=== PATIENT | male | born 1960 | race Two or more races ===

== ENCOUNTER 2020-01-11 11:38 | Inpatient (IN) | payer OTHER ==
[~2020-01-11] VITALS: Ht 165.1 cm; Wt 92.9 kg
[2020-01-11] MEDS ORDERED: HUMALOG100 UNIT/4 SUBQ (12:26)
[2020-01-11] MEDS ORDERED: METFORMIN HCL500 M1 ORAL (12:26)
[2020-01-11] MEDS ORDERED: LEVOFLOXACIN750 MG ORAL (12:26)
[2020-01-11] MEDS ORDERED: HYDROCHLOROTH12.5 MG ORAL (12:26)
[2020-01-11] MEDS ORDERED: OXYTROL1 EACH TD (12:26)
[2020-01-11] MEDS ORDERED: GABAPENTIN600 MG ORAL (12:26)
[2020-01-11] MEDS ORDERED: FLOMAX0.4 MG ORAL (12:26)
[2020-01-11 12:28] VITALS: BP 134/87
--- NOTE | 2020-01-11 12:35 | NUR ---
brought in from [facility] for evaluation of painful scrotal area x 3 days with swelling scrotum is swallen and red exami virgil by dr miller labs done
--- NOTE | 2020-01-11 12:37 | NUR ---
ultrasound at bedside for scrotal ultrasound
[2020-01-11 12:46] LABS: APPEARANCE,URINE SLIGHTLY CLOUDY; BILIRUBIN, URINE NEGATIVE (NEGATIVE); GLUCOSE, URINE (UA) 3+ (NEGATIVE); KETONES,URINE NEGATIVE (NEGATIVE); LEUKOCYTE ESTERASE ,URINE 3+ (NEGATIVE); NITRITE,URINE POSITIVE (NEGATIVE); PH,URINE 6 (4.5-8.0); PROTEIN,URINE 1+ (NEGATIVE); UROBILINOGEN,URINE 1 MG/DL (0.0-1.0)
[2020-01-11 12:48] LABS: INR 1.1 (0.9-1.1)
[2020-01-11 12:52] LABS: HEMATOCRIT 46.5 % (42.0-52.0); MEAN CORPUSCULAR VOLUME 97 FL (80-99); PLATELET COUNT 85 K/UL (150-450); RED BLOOD COUNT 4.81 M/UL (4.70-6.10); RED CELL DISTRIBUTION WIDTH 12.8 % (11.6-14.8)
[2020-01-11] MEDS ORDERED: Piperacillin/Tazobactam 3.375 GM in NS 110 ML IVPB ONE (13:00)
[2020-01-11 13:07] LABS: COLOR,URINE YELLOW
[2020-01-11 13:11] LABS: ALANINE AMINOTRANSFERASE 35 U/L (12-78); ALBUMIN 2.8 G/DL (3.4-5.0); ALBUMIN/GLOBULIN RATIO 0.5 (1.0-2.7); ALKALINE PHOSPHATASE 171 U/L (46-116); ANION GAP 3 mmol/L (5-15); ASPARTATE AMINO TRANSFERASE 34 U/L (15-37); BILIRUBIN,TOTAL 2.4 MG/DL (0.2-1.0); BLOOD UREA NITROGEN 7 mg/dL (7-18); CALCIUM 8.6 MG/DL (8.5-10.1); CARBON DIOXIDE 31 MMOL/L (21-32); CHLORIDE 98 MMOL/L (98-107); CREATININE 0.9 MG/DL (0.55-1.30); POTASSIUM 3.6 MMOL/L (3.5-5.1); SODIUM 132 MMOL/L (136-145)
[2020-01-11 13:13] LABS: BILIRUBIN,DIRECT 0.7 MG/DL (0.0-0.3)
--- NOTE | 2020-01-11 13:45 | NUR ---
ED Nurse Note: patient aware of admition, AAO x4,VSS at this time.
--- NOTE | 2020-01-11 14:34 | Emergency Room Report ---
History of Present Illness General Chief Complaint: General Complaint Source: Patient Present Illness HPI 59-year-old male presents with scrotal pain and swelling x2 days. Coming from assisted facility. Pain is dull, 7 out of 10, nonradiating. Denies fevers or chills. Denies nausea or vomiting. No other aggravating or relieving factors. 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 COVID-19 Screening: Negative COVID-19 COVID-19 Testing Source: nasopharn Patient History Past Medical History: DM, HTN, COPD, other - cirrohisis Pertinent Family History: none Social History: Denies: smoking, alcohol use, drug use Immunizations: UTD Reviewed Nursing Documentation: PMH: Agreed; PSxH: Agreed Nursing Documentation-PMH Past Medical History: No History, Except For Hx Hypertension: Yes - cirrhosis Hx COPD: Yes Hx Diabetes: Yes - type 2 Review of Systems All Other Systems: negative except mentioned in HPI Physical Exam Vital Signs Date Time Temp Pulse Resp B/P (MAP) Pulse Ox O2 Delivery O2 Flow Rate FiO2 01/11/20 11:39 97.9 87 16 134/87 (103) 95 Room Air Sp02 EP Interpretation: reviewed, normal General Appearance: no apparent distress, alert, GCS 15, non-toxic Head: normocephalic, atraumatic Eyes: bilateral eye normal inspection, bilateral eye PERRL ENT: hearing grossly normal, normal pharynx, no angioedema, normal voice Neck: full range of motion, supple/symm/no masses Respiratory: chest non-tender, lungs clear, normal breath sounds, speaking full sentences Cardiovascular #1: regular rate, rhythm, no edema Cardiovascular #2: 2+ carotid (R), 2+ carotid (L), 2+ radial (R), 2+ radial (L), 2+ dorsalis pedis (R), 2+ dorsalis pedis (L) Gastrointestinal: normal bowel sounds, non tender, soft, non-distended, no guarding, no rebound Rectal: deferred Genitourinary: normal inspection, other - Left-sided scrotal swelling Musculoskeletal: back normal, normal range of motion, gait/station normal, non- tender Neurologic: alert, motor strength/tone normal, oriented x3, sensory intact, responsive, speech normal Psychiatric: judgement/insight normal, memory normal, mood/affect normal, no suicidal/homicidal ideation Reflexes: 3+ bicep (R), 3+ bicep (L), 3+ tricep (R), 3+ tricep (L), 3+ knee (R), 3+ knee (L) Skin: other - See nursing notes Lymphatic: no adenopathy Medical Decision Making Diagnostic Impression: Primary Impression: Hydrocele Qualified Codes: N43.3 - Hydrocele, unspecified Additional Impression: UTI (urinary tract infection) Qualified Codes: N39.0 - Urinary tract infection, site not specified ER Course Hospital Course 59-year-old male presents with scrotal pain and swelling Differential diagnoses include: Torsion, cellulitis, abscess Clinical course Patient placed on stretcher. On monitoring engineer with stable vitals are ED course. After initial history and physical, I ordered labs, IV fluids, EKG, chest x-ray, blood cultures, UA. Labs -cytosis, hemoglobin/hematocrit stable, electrolytes okay, lactic 2, UTI grossly positive. CXR - no acute process Scrotal ultrasound shows large hydrocele no evidence of abscess Given fluid bolus. Abx given. Case discussed with Dr Rodriguez and they agreed to admit patient to their service for further care and support I feel this is a highly complex case requiring extensive working including EKG/Rhythm strip, Xray/CT/US, Blood/urine lab work, repeat exams while in ED, and administration of strong opiates/narcotics for pain control, admission to hospital or close patient follow up. Diagnosis - UTI, hydrocele Patient admitted to floor in serious condition Laboratory Tests Test 01/11/20 12:15 White Blood Count 7.0 K/UL (4.8-10.8) Red Blood Count 4.81 M/UL (4.70-6.10) Hemoglobin 16.0 G/DL (14.2-18.0) Hematocrit 46.5 % (42.0-52.0) Mean Corpuscular Volume 97 FL (80-99) Mean Corpuscular Hemoglobin 33.3 PG (27.0-31.0) H Mean Corpuscular Hemoglobin Concent 34.4 G/DL (32.0-36.0) Red Cell Distribution Width 12.8 % (11.6-14.8) Platelet Count 85 K/UL (150-450) L Mean Platelet Volume 8.1 FL (6.5-10.1) Neutrophils (%) (Auto) % (45.0-75.0) Lymphocytes (%) (Auto) % (20.0-45.0) Monocytes (%) (Auto) % (1.0-10.0) Eosinophils (%) (Auto) % (0.0-3.0) Basophils (%) (Auto) % (0.0-2.0) Differential Total Cells Counted 100 Neutrophils % (Manual) 81 % (45-75) H Lymphocytes % (Manual) 6 % (20-45) L Monocytes % (Manual) 10 % (1-10) Eosinophils % (Manual) 3 % (0-3) Basophils % (Manual) 0 % (0-2) Band Neutrophils 0 % (0-8) Platelet Estimate Decreased L Platelet Morphology Normal Red Blood Cell Morphology Normal Prothrombin Time 12.3 SEC (9.30-11.50) H Prothromb Time International Ratio 1.1 (0.9-1.1) Activated Partial Thromboplast Time 30 SEC (23-33) Urine Color Yellow Urine Appearance Slightly cloudy Urine pH 6 (4.5-8.0) Urine Specific [place] 1.010 (1.005-1.035) Urine Protein 1+ (NEGATIVE) H Urine Glucose (UA) 3+ (NEGATIVE) H Urine Ketones Negative (NEGATIVE) Urine Blood 4+ (NEGATIVE) H Urine Nitrite Positive (NEGATIVE) H Urine Bilirubin Negative (NEGATIVE) Urine Urobilinogen 1 MG/DL (0.0-1.0) H Urine Leukocyte Esterase 3+ (NEGATIVE) H Urine RBC 2-4 /HPF (0 - 0) H Urine WBC Tntc /HPF (0 - 0) H Urine Squamous Epithelial Cells Occasional /LPF Urine Bacteria Many /HPF (NONE) H Sodium Level 132 MMOL/L (136-145) L Potassium Level 3.6 MMOL/L (3.5-5.1) Chloride Level 98 MMOL/L (98-107) Carbon Dioxide Level 31 MMOL/L (21-32) Anion Gap 3 mmol/L (5-15) L Blood Urea Nitrogen 7 mg/dL (7-18) Creatinine 0.9 MG/DL (0.55-1.30) Estimat Glomerular Filtration Rate > 60 mL/min (>60) Glucose Level 230 MG/DL (74-106) H Lactic Acid Level 2.00 mmol/L (0.4-2.0) Calcium Level 8.6 MG/DL (8.5-10.1) Total Bilirubin 2.4 MG/DL (0.2-1.0) H Direct Bilirubin 0.7 MG/DL (0.0-0.3) H Aspartate Amino Transf (AST/SGOT) 34 U/L (15-37) Alanine Aminotransferase (ALT/SGPT) 35 U/L (12-78) Alkaline Phosphatase 171 U/L (46-116) H Total Protein 8.0 G/DL (6.4-8.2) Albumin 2.8 G/DL (3.4-5.0) L Globulin 5.2 g/dL Albumin/Globulin Ratio 0.5 (1.0-2.7) L Chest X-Ray Diagnostic Results Chest X-Ray Diagnostic Results : Chest X-Ray Ordered: Yes # of Views/Limited/Complete: 1 View Indication: Other EP Interpretation: Yes Interpretation: no consolidation, no effusion, no pneumothorax, no acute cardiopulmonary disease Impression: No acute disease Electronically Signed by: Electronically signed by Frederick Johnson MD Last Vital Signs Date Time Temp Pulse Resp B/P (MAP) Pulse Ox O2 Delivery O2 Flow Rate FiO2 01/11/20 12:28 78 18 01/11/20 12:28 97.9 134/87 95 Room Air Status: improved Disposition: ADMITTED INPATIENT Condition: Serious Referrals: Rosas Rodriguez MD (PCP) Frederick Johnson MD Jan 11, 2020 14:34
--- NOTE | 2020-01-11 14:42 | Diagnostic Imaging Report ---
Indications: Bilateral testicular pain Technique: Grayscale and duplex images of the scrotum Comparison: none Findings:The right testicle measures 3.7cm in length. It demonstrates normal echogenicity. Normal Doppler flow. Normal epididymis. There is a small hydrocele The left testicle measures 4.2 cm in length. It demonstrates normal echogenicity and normal Doppler flow. Normal epididymis. There are small hydrocele. There are small parenchymal calcifications Impression: No acute abnormality. No evidence of acute torsion Bilateral parenchymal calcifications and bilateral hydroceles incidentally noted
[2020-01-11 16:10] VITALS: BP 140/88
--- NOTE | 2020-01-11 16:35 | Diagnostic Imaging Report ---
Indication: Cough Technique: One view of the chest Comparison: none Findings: Lungs and pleural spaces are clear. The heart size is normal. Impression: Negative
[2020-01-11] MEDS ORDERED: Morphine Sulfate 2mg/ml Inj(IV/IM USE ONLY) IVP PRN ×2 (17:00)
[2020-01-11] MEDS ORDERED: Miralax 17gm pkt ORAL PRN (17:00)
--- NOTE | 2020-01-11 17:24 | History and Physical ---
History of Present Illness General Date patient seen: Jan 11, 2020 Time patient seen: 17:00 Reason for Hospitalization: Scrotal pain and swelling Present Illness HPI 59-year-old male known to me from [facility] who was sent to the ER at [facility] with scrotal pain and swelling x2 days. The pain is dull, 7 out of 10, nonradiating. Denies fevers or chills. Denies nausea or vomiting. No other aggravating or relieving factors. Denies any other associated symptoms. In the ER he was found to have a UTI and severe scrotal swelling which by ultrasound was consistent with a hydrocele. No evidence of torsion or abscess. Admission is requested. Antibiotics were requested and started in the ER. Allergies: Coded Allergies: No Known Allergies (Unverified , 01/11/20) COVID-19 Screening Contact w/high risk pt: No Experienced COVID-19 symptoms?: No Medication History Scheduled Gabapentin* (Gabapentin*), 300 MG ORAL THREE TIMES A DAY, (Reported) Hydrochlorothiazide* (Hydrochlorothiazide*), 12.5 MG ORAL DAILY, (Reported) Levofloxacin* (Levofloxacin*), 750 MG ORAL DAILY, (Reported) Metformin Hcl* (Metformin Hcl*), 500 MG ORAL TWICE A DAY, (Reported) Tamsulosin HCl (Flomax), MG ORAL DAILY, (Reported) Miscellaneous Medications Insulin Lispro (Humalog), 0 SUBQ, (Reported) Oxybutynin (Oxytrol), 1 EACH TD, (Reported) Patient History Healthcare decision maker Resuscitation status Advanced Directive on File Review of Systems All Other Systems: negative except mentioned in HPI ROS Narrative denies fever or chills. Physical Exam General Appearance: WD/WN Lines, tubes and drains: peripheral HEENT: normocephalic Neck: non-tender Respiratory/Chest: lungs clear Cardiovascular/Chest: normal rate Abdomen: non tender Genitourinary/Rectal: other - moderate testicular swelling noted. Left testicle > R. Last 24 Hour Vital Signs Date Time Temp Pulse Resp B/P (MAP) Pulse Ox O2 Delivery O2 Flow Rate FiO2 01/11/20 12:28 78 18 01/11/20 12:28 97.9 16 134/87 95 Room Air 01/11/20 11:39 97.9 87 16 134/87 (103) 95 Room Air Laboratory Tests Test 01/11/20 12:15 White Blood Count 7.0 K/UL (4.8-10.8) Red Blood Count 4.81 M/UL (4.70-6.10) Hemoglobin 16.0 G/DL (14.2-18.0) Hematocrit 46.5 % (42.0-52.0) Mean Corpuscular Volume 97 FL (80-99) Mean Corpuscular Hemoglobin 33.3 PG (27.0-31.0) H Mean Corpuscular Hemoglobin Concent 34.4 G/DL (32.0-36.0) Red Cell Distribution Width 12.8 % (11.6-14.8) Platelet Count 85 K/UL (150-450) L Mean Platelet Volume 8.1 FL (6.5-10.1) Neutrophils (%) (Auto) % (45.0-75.0) Lymphocytes (%) (Auto) % (20.0-45.0) Monocytes (%) (Auto) % (1.0-10.0) Eosinophils (%) (Auto) % (0.0-3.0) Basophils (%) (Auto) % (0.0-2.0) Differential Total Cells Counted 100 Neutrophils % (Manual) 81 % (45-75) H Lymphocytes % (Manual) 6 % (20-45) L Monocytes % (Manual) 10 % (1-10) Eosinophils % (Manual) 3 % (0-3) Basophils % (Manual) 0 % (0-2) Band Neutrophils 0 % (0-8) Platelet Estimate Decreased L Platelet Morphology Normal Red Blood Cell Morphology Normal Prothrombin Time 12.3 SEC (9.30-11.50) H Prothromb Time International Ratio 1.1 (0.9-1.1) Activated Partial Thromboplast Time 30 SEC (23-33) Urine Color Yellow Urine Appearance Slightly cloudy Urine pH 6 (4.5-8.0) Urine Specific [place] 1.010 (1.005-1.035) Urine Protein 1+ (NEGATIVE) H Urine Glucose (UA) 3+ (NEGATIVE) H Urine Ketones Negative (NEGATIVE) Urine Blood 4+ (NEGATIVE) H Urine Nitrite Positive (NEGATIVE) H Urine Bilirubin Negative (NEGATIVE) Urine Urobilinogen 1 MG/DL (0.0-1.0) H Urine Leukocyte Esterase 3+ (NEGATIVE) H Urine RBC 2-4 /HPF (0 - 0) H Urine WBC Tntc /HPF (0 - 0) H Urine Squamous Epithelial Cells Occasional /LPF Urine Bacteria Many /HPF (NONE) H Sodium Level 132 MMOL/L (136-145) L Potassium Level 3.6 MMOL/L (3.5-5.1) Chloride Level 98 MMOL/L (98-107) Carbon Dioxide Level 31 MMOL/L (21-32) Anion Gap 3 mmol/L (5-15) L Blood Urea Nitrogen 7 mg/dL (7-18) Creatinine 0.9 MG/DL (0.55-1.30) Estimat Glomerular Filtration Rate > 60 mL/min (>60) Glucose Level 230 MG/DL (74-106) H Lactic Acid Level 2.00 mmol/L (0.4-2.0) Calcium Level 8.6 MG/DL (8.5-10.1) Total Bilirubin 2.4 MG/DL (0.2-1.0) H Direct Bilirubin 0.7 MG/DL (0.0-0.3) H Aspartate Amino Transf (AST/SGOT) 34 U/L (15-37) Alanine Aminotransferase (ALT/SGPT) 35 U/L (12-78) Alkaline Phosphatase 171 U/L (46-116) H Total Protein 8.0 G/DL (6.4-8.2) Albumin 2.8 G/DL (3.4-5.0) L Globulin 5.2 g/dL Albumin/Globulin Ratio 0.5 (1.0-2.7) L Microbiology Date/Time Source Procedure Growth Status 01/11/20 16:42 Rectum Received Height (Feet): 5 Height (Inches): 5.00 Weight (Pounds): 210 Medications Current Medications Medications (Trade) Dose Ordered Sig/Chau Route PRN Reason Start Time Stop Time Status Last Admin Dose Admin Acetaminophen (Tylenol) 650 mg Q4H PRN ORAL Mild Pain (Pain Scale 1-3) 01/11/20 17:00 02/10/20 16:59 Al Hydroxide/Mg Hydroxide (Mylanta II) 30 ml Q6H PRN ORAL dyspepsia 01/11/20 17:00 02/10/20 16:59 Dextrose (Dextrose 50%) 25 ml Q30M PRN IV Hypoglycemia 01/11/20 17:00 04/10/20 16:59 Dextrose (Dextrose 50%) 50 ml Q30M PRN IV Hypoglycemia 01/11/20 17:00 04/10/20 16:59 Docusate Sodium (Colace) 100 mg EVERY 12 HOURS ORAL 01/11/20 21:00 02/10/20 20:59 Enoxaparin Sodium (Lovenox) 40 mg Q24H SUBQ 01/11/20 18:00 04/10/20 17:59 UNV Famotidine (Pepcid) 40 mg DAILY ORAL 01/12/20 09:00 04/11/20 08:59 UNV Gabapentin (Neurontin) 300 mg THREE TIMES A DAY ORAL 01/11/20 18:00 02/10/20 17:59 UNV Hydrochlorothiazide (Hydrodiuril) 12.5 mg DAILY ORAL 01/12/20 09:00 02/11/20 08:59 UNV Morphine Sulfate (Morphine Sulfate) 1 mg Q3H PRN IVP mild pain 01/11/20 17:00 01/18/20 16:59 Morphine Sulfate (Morphine Sulfate) 2 mg Q3H PRN IVP severe pain 01/11/20 17:00 01/18/20 16:59 Morphine Sulfate (Morphine Sulfate) 2 mg Q4H PRN IVP MODERATE PAIN 01/11/20 17:00 01/18/20 16:59 Ondansetron HCl (Zofran) 4 mg Q6H PRN IVP Nausea & Vomiting 01/11/20 17:00 02/10/20 16:59 Polyethylene Glycol (Miralax) 17 gm HSPRN PRN ORAL Constipation 01/11/20 17:00 02/10/20 16:59 Sodium Chloride 1,000 ml @ 75 mls/hr [id number] IV 01/11/20 18:00 01/12/20 09:00 UNV Tamsulosin HCl (Flomax) 0.4 mg DAILY ORAL 01/12/20 09:00 02/11/20 08:59 Temazepam (Restoril) 15 mg HSPRN PRN ORAL Insomnia 01/11/20 17:00 01/18/20 16:59 Assessment/Plan Status: stable Status Narrative 59 y/o male admitted to the Hospital with: # UTI # Scrotal swelling - hydrocele # Testicular pain IV antibiotic Zosyn started and will be continued Urology consult with Dr. Melanie traylor. Patient has a history of BPH Testicular elevation with rolled up towel for comfort and decrease of pain # T2DM Hold home Metformin while in the hospital - active infection Insulin sliding scale for now Monitor BG # BPH Resume Tamsulosin #Polyneuropathy Resume Gabapentin # History of recovered Covid 19 in the past Non sympthomatic at this time. PT evaluation for mobility protocol when able to participate DVT ppx with LMWH GI ppx with Famotidine FULLCODE Rosas Rodriguez MD Jan 11, 2020 17:24
--- NOTE | 2020-01-11 19:40 | NUR ---
NURSE NOTES: received report from ER nurse SHAZIA Walters. awaiting pt arrival on unit.
--- NOTE | 2020-01-11 19:44 | NUR ---
ED Nurse Note: report given to SHAZIA Cross
--- NOTE | 2020-01-11 19:45 | NUR ---
ED Nurse Note: Patient was admited to [facility] due to scrotum celullitis. Patient AAO x4, VSS at this time, ski is warm to touch. Patient was transfered to the unit via gurney, with all belongings.
--- NOTE | 2020-01-11 19:50 | NUR ---
NURSE NOTES: pt arrived on unit with no cute s/s of distress and with co pain. will give medication for pain. pt alert and oriented x 4. pt iv site clean dry and intact. pt vital signs stable. pt oriented to room and unit. bed in lowest position, call light in reach. Belongings reconciled.
[2020-01-11 19:53] VITALS: BP 156/96
--- NOTE | 2020-01-11 20:10 | NUR ---
NURSE NOTES: pt observed to have pinkish rash that he claims is itchy on his face and neck. He said it started around two to three weeks ago. [facility] the rash was not bothering him that much until I brought it up to him on my assessment. He said he will bring it up to his doctor when they do rounds. will endorse to day shift nurse to follow up with the doctor.
[2020-01-11] MEDS: Docusate 100mg cap ORAL SCH (20:13)
[2020-01-11] MEDS: NovoLOG Insulin Flexpen SUBQ SCH (20:23)
--- NOTE | 2020-01-11 21:15 | Consultation ---
DATE OF CONSULTATION: 01/11/2020 CONSULTING PHYSICIAN: Marcellus Navarro M.D. REFERRING PHYSICIAN: Rosas Rodriguez M.D. REASON FOR CONSULTATION: For evaluation of enlarged testicle. HISTORY OF PRESENT ILLNESS: This is a 59-year-old male. He has a 3 to 4 day history of enlarging left testicle with pain. He has some urinary frequency. He was noted to have some cloudiness to his urine. He was noted to have UTI. Urology evaluation is requested. PAST MEDICAL HISTORY: Significant for history of diabetes, BPH. PAST SURGICAL HISTORY: Unknown. MEDICATIONS: Current medication list and his outpatient medication list were reviewed. ALLERGIES: No known drug allergies. SOCIAL HISTORY: He is a resident of a group home. PHYSICAL EXAMINATION: GENERAL: No acute distress. VITAL SIGNS: Temperature is 97.9, blood pressure 140/88, pulse 89, respirations 16. ABDOMEN: Soft. No CVA tenderness. GENITOURINARY: Uncircumcised phallus. Left testicle is enlarged, tender to palpation. There is no fluctuance. LABORATORY DATA: BUN is 7, creatinine 0.9. White count 7.0, hemoglobin 16.0, platelets 85. His UA showed 1+ protein, 2-4 rbc's, [id number] wbc's, many bacteria. DIAGNOSTIC AND IMAGING STUDIES: The patient had testicular ultrasound, which showed evidence of bilateral hydroceles. IMPRESSION: 1. Probable left orchitis. 2. Reactive hydrocele. 3. Urinary frequency. 4. Pyuria. 5. Hematuria. 6. Proteinuria. 7. BPH. 8. Rule out neurogenic bladder. PLAN AND DISCUSSION: Again, the patient does have findings that are consistent with the left orchitis and pyuria and likely UTI. He needs to be on antibiotics as ordered. We will follow up on any other cultures. He has Flomax and Proscar ordered. He will be monitored clinically. There is no evidence of any fluctuance or abscess at this time. Marcellus Navarro M.D. DR: WALTER JOB#: [id number] CC:
[2020-01-11] MEDS: Piperacillin/Tazobactam 3.375 GM in NS 110 ML IVPB SCH (21:27)
[2020-01-11] MEDS: Sennosides 8.6mg tab ORAL SCH (21:28)
[2020-01-11] MEDS: Miralax 17gm pkt ORAL SCH (21:28)
[2020-01-11] MEDS: HYDROcodone/Acetamin 5/325 tab ORAL PRN (21:56)
[2020-01-12] VITALS: BP 127/85
--- NOTE | 2020-01-12 00:16 | NUR ---
NURSE NOTES: pt vital signs stable and wo acute s/s of distress. he still has pain but at a comfortable level. pt states increased comfort with the scrotum elevated on rolled towel.
[2020-01-12 04:00] VITALS: BP 139/83
--- NOTE | 2020-01-12 04:35 | NUR ---
NURSE NOTES: pt has been stable throughout the shift so far. vital signs within normal limits and no s/s of acute distress and wo complaint of pain at the moment. pt scrotum remains elevated on a rolled towel. pt currently sleeping
[2020-01-12] MEDS: Piperacillin/Tazobactam 3.375 GM in NS 110 ML IVPB SCH ×3 (05:02→21:33)
[2020-01-12 05:41] LABS: HEMOGLOBIN 15.3 G/DL (14.2-18.0); MEAN CORPUSCULAR VOLUME 96 FL (80-99); PLATELET COUNT 90 K/UL (150-450); RED BLOOD COUNT 4.58 M/UL (4.70-6.10); WHITE BLOOD COUNT 8.7 K/UL (4.8-10.8)
[2020-01-12] MEDS: NovoLOG Insulin Flexpen SUBQ SCH ×4 (05:49→20:15)
[2020-01-12 06:40] LABS: ANION GAP 4 mmol/L (5-15); BLOOD UREA NITROGEN 6 mg/dL (7-18); CALCIUM 8.1 MG/DL (8.5-10.1); CARBON DIOXIDE 30 MMOL/L (21-32); CHLORIDE 102 MMOL/L (98-107); CREATININE 0.9 MG/DL (0.55-1.30); POTASSIUM 3.8 MMOL/L (3.5-5.1); SODIUM 136 MMOL/L (136-145)
--- NOTE | 2020-01-12 07:27 | NUR ---
NURSE HAND-OFF: Important Events on Shift:pain management Patient Status: stable Diet: consistent carb diet Pending Orders: NA Pending Results/Labs:NA Pending MD notification:NA Latest Vital Signs: Temperature 98.5 , Pulse 78 , B/P 139 /83 , Respiratory Rate 16 , O2 SAT 97 , Room Air, O2 Flow Rate . Vital Sign Comment: stable through the shift Latest Romero Fall Score: 50 Fall Risk: High Risk Safety Measures: Call light Within Reach, Bed Alarm , Side Rails Side Rails x2, Bed position Low and Locked. Fall Precautions: Patient Fall Education Report given to Krystal Garcia RN.
--- NOTE | 2020-01-12 07:51 | NUR ---
NURSE NOTES: Received report from SHAZIA Cross. Rounding done with outgoing nurse. Pt a/o x 4, in bed, having breakfast. No SOB noted. Pt mentioned pain level is 6/10. Will give pain meds as MD ordered. Discussed POC today. Instruction was given that call nurse when pt wants to use walker. Bed in lowest position, call light within reach. Will continue to monitor.
[2020-01-12 08:00] VITALS: BP 121/80
--- NOTE | 2020-01-12 08:51 | Urology Progress Note ---
Assessment/Plan Status: stable Assessment/Plan: 1. Probable left orchitis. 2. Reactive hydrocele. 3. Urinary frequency. 4. Pyuria/UTI. 5. Hematuria. 6. Proteinuria. 7. BPH. 8. Rule out neurogenic bladder. monitor clinically abx as ordered scrotal support flomax f/u on urine cx Subjective Allergies: Coded Allergies: No Known Allergies (Unverified , 01/11/20) Subjective all noted, feels fair, voiding Objective Last 24 Hour Vital Signs Date Time Temp Pulse Resp B/P (MAP) Pulse Ox O2 Delivery O2 Flow Rate FiO2 01/12/20 04:00 98.5 78 16 139/83 (101) 97 01/12/20 00:00 98.6 98 17 127/85 (99) 95 01/11/20 21:00 Room Air 01/11/20 20:33 Room Air 01/11/20 19:53 99.2 90 18 156/96 (116) 97 01/11/20 19:43 97.9 89 16 140/88 95 Room Air 01/11/20 16:10 97.9 89 16 140/88 95 Room Air 01/11/20 12:28 78 18 01/11/20 12:28 97.9 16 134/87 95 Room Air 01/11/20 11:39 97.9 87 16 134/87 (103) 95 Room Air Intake and Output 01/11/20 01/12/20 19:00 07:00 Intake Total 1725 ml Output Total 1500 ml Balance 225 ml Intake Oral 1200 ml IV Total 525 ml Output Urine Total 1500 ml # Voids 7 Microbiology Date/Time Source Procedure Growth Status 01/11/20 16:54 Nasopharynx SARS-CoV-2 RdRp Gene Assay - Final Complete 01/11/20 16:42 Rectum Received 01/11/20 12:15 Urine,Clean Catch Urine Culture - Preliminary Gram Negative Darryl Resulted Current Medications Medications (Trade) Dose Ordered Sig/Chau Route PRN Reason Start Time Stop Time Status Last Admin Dose Admin Acetaminophen (Tylenol) 650 mg Q4H PRN ORAL Mild Pain (Pain Scale 1-3) 01/11/20 17:00 02/10/20 16:59 Acetaminophen/ Hydrocodone Bitart ([place] 5/325) 1 tab Q6H PRN ORAL Moderate Pain (Pain Scale 4-6) 01/11/20 18:00 01/18/20 17:59 01/11/20 21:56 Al Hydroxide/Mg Hydroxide (Mylanta II) 30 ml Q6H PRN ORAL dyspepsia 01/11/20 17:00 02/10/20 16:59 Dextrose (Dextrose 50%) 25 ml Q30M PRN IV Hypoglycemia 01/11/20 17:15 04/10/20 17:14 Dextrose (Dextrose 50%) 50 ml Q30M PRN IV Hypoglycemia 01/11/20 17:15 04/10/20 17:14 Docusate Sodium (Colace) 100 mg EVERY 12 HOURS ORAL 01/11/20 21:00 02/10/20 20:59 01/11/20 20:13 Enoxaparin Sodium (Lovenox) 40 mg Q24H SUBQ 01/11/20 18:00 04/10/20 17:59 UNV Famotidine (Pepcid) 40 mg DAILY ORAL 01/12/20 09:00 04/11/20 08:59 Finasteride (Proscar) 5 mg DAILY ORAL 01/12/20 09:00 04/11/20 08:59 Gabapentin (Neurontin) 300 mg THREE TIMES A DAY ORAL 01/11/20 21:00 02/10/20 20:59 01/11/20 21:28 Hydrochlorothiazide (Hydrodiuril) 12.5 mg DAILY ORAL 01/12/20 09:00 02/11/20 08:59 Insulin Aspart (NovoLOG) BEFORE MEALS AND HS SUBQ 01/11/20 21:00 04/10/20 20:59 Morphine Sulfate (Morphine Sulfate) 1 mg Q3H PRN IVP mild pain 01/11/20 17:00 01/18/20 16:59 Morphine Sulfate (Morphine Sulfate) 2 mg Q3H PRN IVP severe pain 01/11/20 17:00 01/18/20 16:59 Morphine Sulfate (Morphine Sulfate) 2 mg Q4H PRN IVP MODERATE PAIN 01/11/20 17:00 01/18/20 16:59 Ondansetron HCl (Zofran) 4 mg Q6H PRN IVP Nausea & Vomiting 01/11/20 17:00 02/10/20 16:59 Piperacillin Sod/ Tazobactam Sod 3.375 gm/Sodium Chloride 110 ml @ 27.5 mls/hr EVERY 8 HOURS IVPB 01/11/20 22:00 01/18/20 21:59 01/12/20 05:02 Polyethylene Glycol (Miralax) 17 gm DAILY ORAL 01/11/20 21:00 02/10/20 20:59 01/11/20 21:28 Polyethylene Glycol (Miralax) 17 gm HSPRN PRN ORAL Constipation 01/11/20 17:00 02/10/20 16:59 Sennosides (Senokot) 8.6 mg DAILY ORAL 01/11/20 21:00 02/10/20 20:59 01/11/20 21:28 Sodium Chloride 1,000 ml @ 75 mls/hr [id number] IV 01/11/20 20:00 01/12/20 19:59 01/11/20 20:13 Tamsulosin HCl (Flomax) 0.4 mg DAILY ORAL 01/12/20 09:00 02/11/20 08:59 Temazepam (Restoril) 15 mg HSPRN PRN ORAL Insomnia 01/11/20 17:00 01/18/20 16:59 Laboratory Tests 01/11/20 12:15: White Blood Count 7.0, Red Blood Count 4.81, Hemoglobin 16.0, Hematocrit 46.5, Mean Corpuscular Volume 97, Mean Corpuscular Hemoglobin 33.3H, Mean Corpuscular Hemoglobin Concent 34.4, Red Cell Distribution Width 12.8, Platelet Count 85L, Mean Platelet Volume 8.1, Neutrophils (%) (Auto) , Lymphocytes (%) (Auto) , Monocytes (%) (Auto) , Eosinophils (%) (Auto) , Basophils (%) (Auto) , Differential Total Cells Counted 100, Neutrophils % (Manual) 81H, Lymphocytes % (Manual) 6L, Monocytes % (Manual) 10, Eosinophils % (Manual) 3, Basophils % (Manual) 0, Band Neutrophils 0, Platelet Estimate DecreasedL, Platelet Morphology Normal, Red Blood Cell Morphology Normal, Prothrombin Time 12.3H, Prothromb Time International Ratio 1.1, Activated Partial Thromboplast Time 30, Urine Color Yellow, Urine Appearance Slightly cloudy, Urine pH 6, Urine Specific [place] 1.010, Urine Protein 1+H, Urine Glucose (UA) 3+H, Urine Ketones Negative, Urine Blood 4+H, Urine Nitrite PositiveH, Urine Bilirubin Negative, Urine Urobilinogen 1H, Urine Leukocyte Esterase 3+H, Urine RBC 2-4H, Urine WBC TntcH, Urine Squamous Epithelial Cells Occasional, Urine Bacteria ManyH, Sodium Level 132L, Potassium Level 3.6, Chloride Level 98, Carbon Dioxide Level 31, Anion Gap 3L, Blood Urea Nitrogen 7, Creatinine 0.9, Estimat Glomerular Filtration Rate > 60, Glucose Level 230H, Lactic Acid Level 2.00, Calcium Level 8.6, Total Bilirubin 2.4H, Direct Bilirubin 0.7H, Aspartate Amino Transf (AST/SGOT) 34, Alanine Aminotransferase (ALT/SGPT) 35, Alkaline Phosphatase 171H , Total Protein 8.0, Albumin 2.8L, Globulin 5.2, Albumin/Globulin Ratio 0.5L 01/11/20 20:23: POC Whole Blood Glucose 111H 01/12/20 04:40: White Blood Count 8.7, Red Blood Count 4.58L, Hemoglobin 15.3, Hematocrit 44.0, Mean Corpuscular Volume 96, Mean Corpuscular Hemoglobin 33.4H, Mean Corpuscular Hemoglobin Concent 34.7, Red Cell Distribution Width 13.0, Platelet Count 90L, Mean Platelet Volume 7.6, Neutrophils (%) (Auto) , Lymphocytes (%) (Auto) , Monocytes (%) (Auto) , Eosinophils (%) (Auto) , Basophils (%) (Auto) , Sodium Level 136, Potassium Level 3.8, Chloride Level 102, Carbon Dioxide Level 30, Anion Gap 4L, Blood Urea Nitrogen 6L, Creatinine 0.9, Estimat Glomerular Filtration Rate > 60, Glucose Level 126#H, Calcium Level 8.1L 01/12/20 05:46: POC Whole Blood Glucose 122H Height (Feet): 5 Height (Inches): 5.00 Weight (Pounds): 210 Objective exam stable no scrotal fluctuance Marcellus Navarro MD Jan 12, 2020 08:51
[2020-01-12] MEDS: Tamsulosin 0.4mg cap ORAL SCH (09:01)
[2020-01-12] MEDS: Sennosides 8.6mg tab ORAL SCH (09:01)
[2020-01-12] MEDS: hydroCHLOROthiazide 12.5mg TAB ORAL SCH (09:01)
[2020-01-12] MEDS: Miralax 17gm pkt ORAL SCH (09:01)
[2020-01-12] MEDS: Docusate 100mg cap ORAL SCH ×2 (09:01→20:11)
[2020-01-12] MEDS: Morphine Sulfate 2mg/ml Inj(IV/IM USE ONLY) IVP PRN ×3 (09:03→20:13)
--- NOTE | 2020-01-12 11:30 | NUR ---
NURSE NOTES: Seen by Dr. Rodriguez. Notified Dr. Rodriguez regarding pt c/o facial itching/rash. Dr. Rodriguez noted. No new order.
--- NOTE | 2020-01-12 11:47 | General Progress Note ---
Subjective Date patient seen: Jan 12, 2020 Time patient seen: 11:00 ROS Limited/Unobtainable: No Allergies: Coded Allergies: No Known Allergies (Unverified , 01/11/20) All Systems: reviewed and negative except above Subjective Testicular pain is mildly improved. No fever. Objective Last 24 Hour Vital Signs Date Time Temp Pulse Resp B/P (MAP) Pulse Ox O2 Delivery O2 Flow Rate FiO2 01/12/20 09:00 Room Air 01/12/20 08:00 98.7 94 16 121/80 (94) 95 01/12/20 04:00 98.5 78 16 139/83 (101) 97 01/12/20 00:00 98.6 98 17 127/85 (99) 95 01/11/20 21:00 Room Air 01/11/20 20:33 Room Air 01/11/20 19:53 99.2 90 18 156/96 (116) 97 01/11/20 19:43 97.9 89 16 140/88 95 Room Air 01/11/20 16:10 97.9 89 16 140/88 95 Room Air 01/11/20 12:28 78 18 01/11/20 12:28 97.9 16 134/87 95 Room Air 01/11/20 11:39 97.9 87 16 134/87 (103) 95 Room Air Intake and Output 01/11/20 01/12/20 19:00 07:00 Intake Total 1725 ml Output Total 1500 ml Balance 225 ml Intake Oral 1200 ml IV Total 525 ml Output Urine Total 1500 ml # Voids 7 Laboratory Tests 01/11/20 12:15: White Blood Count 7.0, Red Blood Count 4.81, Hemoglobin 16.0, Hematocrit 46.5, Mean Corpuscular Volume 97, Mean Corpuscular Hemoglobin 33.3H, Mean Corpuscular Hemoglobin Concent 34.4, Red Cell Distribution Width 12.8, Platelet Count 85L, Mean Platelet Volume 8.1, Neutrophils (%) (Auto) , Lymphocytes (%) (Auto) , Monocytes (%) (Auto) , Eosinophils (%) (Auto) , Basophils (%) (Auto) , Differential Total Cells Counted 100, Neutrophils % (Manual) 81H, Lymphocytes % (Manual) 6L, Monocytes % (Manual) 10, Eosinophils % (Manual) 3, Basophils % (Manual) 0, Band Neutrophils 0, Platelet Estimate DecreasedL, Platelet Morphology Normal, Red Blood Cell Morphology Normal, Prothrombin Time 12.3H, Prothromb Time International Ratio 1.1, Activated Partial Thromboplast Time 30, Urine Color Yellow, Urine Appearance Slightly cloudy, Urine pH 6, Urine Specific [place] 1.010, Urine Protein 1+H, Urine Glucose (UA) 3+H, Urine Ketones Negative, Urine Blood 4+H, Urine Nitrite PositiveH, Urine Bilirubin Negative, Urine Urobilinogen 1H, Urine Leukocyte Esterase 3+H, Urine RBC 2-4H, Urine WBC TntcH, Urine Squamous Epithelial Cells Occasional, Urine Bacteria ManyH, Sodium Level 132L, Potassium Level 3.6, Chloride Level 98, Carbon Dioxide Level 31, Anion Gap 3L, Blood Urea Nitrogen 7, Creatinine 0.9, Estimat Glomerular Filtration Rate > 60, Glucose Level 230H, Lactic Acid Level 2.00, Calcium Level 8.6, Total Bilirubin 2.4H, Direct Bilirubin 0.7H, Aspartate Amino Transf (AST/SGOT) 34, Alanine Aminotransferase (ALT/SGPT) 35, Alkaline Phosphatase 171H , Total Protein 8.0, Albumin 2.8L, Globulin 5.2, Albumin/Globulin Ratio 0.5L 01/11/20 20:23: POC Whole Blood Glucose 111H 01/12/20 04:40: White Blood Count 8.7, Red Blood Count 4.58L, Hemoglobin 15.3, Hematocrit 44.0, Mean Corpuscular Volume 96, Mean Corpuscular Hemoglobin 33.4H, Mean Corpuscular Hemoglobin Concent 34.7, Red Cell Distribution Width 13.0, Platelet Count 90L, Mean Platelet Volume 7.6, Neutrophils (%) (Auto) , Lymphocytes (%) (Auto) , Monocytes (%) (Auto) , Eosinophils (%) (Auto) , Basophils (%) (Auto) , Sodium Level 136, Potassium Level 3.8, Chloride Level 102, Carbon Dioxide Level 30, An ion Gap 4L, Blood Urea Nitrogen 6L, Creatinine 0.9, Estimat Glomerular Filtration Rate > 60, Glucose Level 126#H, Calcium Level 8.1L 01/12/20 05:46: POC Whole Blood Glucose 122H Height (Feet): 5 Height (Inches): 5.00 Weight (Pounds): 210 General Appearance: WD/WN EENT: PERRL/EOMI Neck: non-tender Cardiovascular: normal rate Respiratory/Chest: lungs clear Abdomen: non tender Edema: trace edema 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 Navarro appreciated. Patient has a history of BPH Testicular elevation with rolled up towel for comfort and decrease of pain # T2DM Hold home Metformin while in the hospital - active infection Insulin sliding scale for now Monitor BG # BPH Resume Tamsulosin and Finasteride #Polyneuropathy Resume Gabapentin # History of recovered Covid 19 in the past Stable at this time. PT evaluation for mobility protocol when able to participate DVT ppx with LMWH hold if platelets less than 50 K GI ppx with Famotidine FULL CODE Rosas Rodriguez MD Jan 12, 2020 11:47
[2020-01-12] MEDS: Mylanta II UD 30ml ORAL PRN (11:52)
[2020-01-12 12:00] VITALS: BP 129/86
[2020-01-12] MEDS: Enoxaparin 40mg Inj SUBQ SCH (12:12)
--- NOTE | 2020-01-12 13:23 | NUR ---
P.T Note: P.T evaluation completed and tx initiated. Please refer to P.T evaluation for current functional status.
--- NOTE | 2020-01-12 13:53 | NUR ---
CASE MANAGEMENT:INITIAL REVIEW 59 YR OLD MALE BIBA FROM [facility] ON CC;GENERAL COMPLAINT SI;SCROTAL CELLULITIS. HYDROCELE. UTI. 99.2 90 18 156/96 95% ON RA NA 132 BG 230 T-BILI 2. D-BILI 0.7 ALP 171 ALB 2.8 PT 12.3 UA+ PROTEIN, BLOOD GLUCOSE, NITRITE, UROBILINOGEN LEUKOCYTE ESTERASE, RBC, WBC, BACTERIA URINE CX ~ (+) E. COLI RAPID COVID ~ NEGATIVE CXR ~ NEGATIVE TESTICULAR US ~ No acute abnormality. No evidence of acute torsion Bilateral parenchymal calcifications and bilateral hydroceles incidentally noted TYPE & CROSS IS;ZOSYN IV IVF NS BOLUS ADMITTED TO MED SURG 01/11/20 @ 1711 MED SURG STATUS DCP;FROM [facility]
[2020-01-12 16:00] VITALS: BP 128/75
--- NOTE | 2020-01-12 18:40 | NUR ---
NURSE HAND-OFF: Pain meds were given x 2 Important Events on Shift:Pain meds were given x 2 Patient Status: stable Diet: CCHO Pending Orders: N/A Pending Results/Labs: N/A Pending MD notification: N/A Latest Vital Signs: Temperature 98.2 , Pulse 80 , B/P 128 /75 , Respiratory Rate 16 , O2 SAT 99 , Room Air, O2 Flow Rate . Vital Sign Comment: Latest Romero Fall Score: 50 Fall Risk: High Risk Safety Measures: Call light Within Reach, Bed Alarm , Side Rails Side Rails x2, Bed position Low and Locked. Fall Precautions: Patient Fall Education Report given to SHAZIA Cross.
--- NOTE | 2020-01-12 19:30 | NUR ---
NURSE NOTES: received pt and report from [place] RN. pt alert and oriented x 4 with no acute s/s of distress. co pain 6/10. will give pain medication when due. pt iv site clean dry and intact and running fluids as ordered. walker at bedside. plan of care discussed.
[2020-01-12 19:35] VITALS: BP 131/78
--- NOTE | 2020-01-12 21:30 | NUR ---
NURSE NOTES: Received order from for pt to receive jock strap from central supply to provide support for scrotum during ambulation and out of bed activities. while laying in bed, pt should continue elevation of scrotum on rolled washcloths.
--- NOTE | 2020-01-12 21:30 | NUR ---
NURSE NOTES: pt was sitting on chair at start of shift. I observed him walking with the walker around his room with steady gait. he has co pain in the scrotum which is controlled by PRN morphine. he is alert and oriented x 4 with no s/s of acute distress.
[2020-01-13] VITALS (7 sets, daily range): BP systolic 123–153; BP diastolic 77–90
--- NOTE | 2020-01-13 00:12 | NUR ---
NURSE NOTES: pt alert and oriented x 4. pt vitals stable up to this point in the shift. pt has had no s/s of distress, co pain controlled by morphine, pt requested to have restoril for insomnia. pt is currently asleep. pt scrotum is elevated on rolled towel per physician order.
--- NOTE | 2020-01-13 04:34 | NUR ---
NURSE NOTES: pt vital signs stable, he is in no acute distress and he verbalizes that pain is improved. scrotum still elevated on rolled pillow. pt did not get up since start of shift and voids in urinal. I educated the pt on the importance of getting up to walk for prevention of immobility complications. pt verbalized understanding. pt is concerned that he has not had a bm since saturday. will endorse to day shift nurse to obtain order from doctor for constipation management.
[2020-01-13] MEDS: Piperacillin/Tazobactam 3.375 GM in NS 110 ML IVPB SCH ×3 (05:01→21:04)
[2020-01-13 05:28] LABS: HEMOGLOBIN 15.1 G/DL (14.2-18.0); MEAN CORPUSCULAR VOLUME 95 FL (80-99); PLATELET COUNT 84 K/UL (150-450); RED BLOOD COUNT 4.45 M/UL (4.70-6.10); RED CELL DISTRIBUTION WIDTH 12.8 % (11.6-14.8); WHITE BLOOD COUNT 4.8 K/UL (4.8-10.8)
[2020-01-13] MEDS: NovoLOG Insulin Flexpen SUBQ SCH ×4 (05:37→20:15)
[2020-01-13 06:35] LABS: ANION GAP 5 mmol/L (5-15); BLOOD UREA NITROGEN 9 mg/dL (7-18); CALCIUM 8.1 MG/DL (8.5-10.1); CARBON DIOXIDE 28 MMOL/L (21-32); CHLORIDE 105 MMOL/L (98-107); POTASSIUM 3.7 MMOL/L (3.5-5.1); SODIUM 138 MMOL/L (136-145)
--- NOTE | 2020-01-13 07:33 | NUR ---
NURSE HAND-OFF: Important Events on Shift:pain management Patient Status: stable Diet: consistent carb Pending Orders: NA Pending Results/Labs:NA Pending MD notification:NA Latest Vital Signs: Temperature 98.0 , Pulse 96 , B/P 144 /90 , Respiratory Rate 16 , O2 SAT 95 , Room Air, O2 Flow Rate . Vital Sign Comment: stable through the shift Latest Romero Fall Score: 50 Fall Risk: High Risk Safety Measures: Call light Within Reach, Bed Alarm , Side Rails Side Rails x2, Bed position Low and Locked. Fall Precautions: Patient Fall Education Report given to SHAZIA Larson.
--- NOTE | 2020-01-13 07:45 | NUR ---
NURSE NOTES: received report from SHAZIA Cross. pt alert and orientedx4, in RA, no acute s/s of distress. No co pain at this time. IV intact and running fluids as ordered. walker at bedside. plan of care discussed. Call light and needs within reach. will continue to monitor.
--- NOTE | 2020-01-13 08:49 | Urology Progress Note ---
Assessment/Plan Status: stable Assessment/Plan: 1. Probable left orchitis. 2. Reactive hydrocele. 3. Urinary frequency. 4. Pyuria/UTI. 5. Hematuria. 6. Proteinuria. 7. BPH. 8. Rule out neurogenic bladder. monitor clinically abx as ordered scrotal support flomax Subjective Allergies: Coded Allergies: No Known Allergies (Unverified , 01/11/20) Subjective all noted, feels fair, voiding Objective Last 24 Hour Vital Signs Date Time Temp Pulse Resp B/P (MAP) Pulse Ox O2 Delivery O2 Flow Rate FiO2 01/13/20 04:00 98.0 96 16 144/90 (108) 95 01/13/20 00:00 97.6 78 15 147/87 (107) 97 01/12/20 19:36 Room Air 01/12/20 19:35 97.8 81 16 131/78 (95) 97 01/12/20 16:00 98.2 80 16 128/75 (92) 99 01/12/20 12:00 98.4 79 16 129/86 (100) 100 01/12/20 09:00 Room Air Intake and Output 01/12/20 01/13/20 19:00 07:00 Intake Total 1785.0 ml 1015 ml Output Total 700 ml 1350 ml Balance 1085.0 ml -335 ml Intake Oral 1000 ml 940 ml IV Total 785.0 ml 75 ml Output Urine Total 700 ml 1350 ml # Voids 6 Microbiology Date/Time Source Procedure Growth Status 01/11/20 16:54 Nasopharynx SARS-CoV-2 RdRp Gene Assay - Final Complete 01/11/20 16:42 Rectum Received 01/11/20 12:15 Urine,Clean Catch Urine Culture - Final Escherichia Coli Complete Current Medications Medications (Trade) Dose Ordered Sig/Chau Route PRN Reason Start Time Stop Time Status Last Admin Dose Admin Acetaminophen (Tylenol) 650 mg Q4H PRN ORAL Mild Pain (Pain Scale 1-3) 01/11/20 17:00 02/10/20 16:59 Acetaminophen/ Hydrocodone Bitart ([place] 5/325) 1 tab Q6H PRN ORAL Moderate Pain (Pain Scale 4-6) 01/11/20 18:00 01/18/20 17:59 01/11/20 21:56 Al Hydroxide/Mg Hydroxide (Mylanta II) 30 ml Q6H PRN ORAL dyspepsia 01/11/20 17:00 02/10/20 16:59 01/12/20 11:52 Dextrose (Dextrose 50%) 25 ml Q30M PRN IV Hypoglycemia 01/11/20 17:15 04/10/20 17:14 Dextrose (Dextrose 50%) 50 ml Q30M PRN IV Hypoglycemia 01/11/20 17:15 04/10/20 17:14 Docusate Sodium (Colace) 100 mg EVERY 12 HOURS ORAL 01/11/20 21:00 02/10/20 20:59 01/12/20 20:11 Enoxaparin Sodium (Lovenox) 40 mg DAILY SUBQ 01/12/20 12:00 04/11/20 11:59 01/12/20 12:12 Famotidine (Pepcid) 40 mg DAILY ORAL 01/12/20 09:00 04/11/20 08:59 01/12/20 09:01 Finasteride (Proscar) 5 mg DAILY ORAL 01/12/20 09:00 04/11/20 08:59 01/12/20 09:01 Gabapentin (Neurontin) 300 mg THREE TIMES A DAY ORAL 01/11/20 21:00 02/10/20 20:59 01/12/20 17:14 Hydrochlorothiazide (Hydrodiuril) 12.5 mg DAILY ORAL 01/12/20 09:00 02/11/20 08:59 01/12/20 09:01 Insulin Aspart (NovoLOG) BEFORE MEALS AND HS SUBQ 01/11/20 21:00 04/10/20 20:59 01/12/20 20:15 Morphine Sulfate (Morphine Sulfate) 1 mg Q3H PRN IVP mild pain 01/11/20 17:00 01/18/20 16:59 Morphine Sulfate (Morphine Sulfate) 2 mg Q3H PRN IVP severe pain 01/11/20 17:00 01/18/20 16:59 01/12/20 20:13 Morphine Sulfate (Morphine Sulfate) 2 mg Q4H PRN IVP MODERATE PAIN 01/11/20 17:00 01/18/20 16:59 Ondansetron HCl (Zofran) 4 mg Q6H PRN IVP Nausea & Vomiting 01/11/20 17:00 02/10/20 16:59 Piperacillin Sod/ Tazobactam Sod 3.375 gm/Sodium Chloride 110 ml @ 27.5 mls/hr EVERY 8 HOURS IVPB 01/11/20 22:00 01/18/20 21:59 01/13/20 05:01 Polyethylene Glycol (Miralax) 17 gm DAILY ORAL 01/11/20 21:00 02/10/20 20:59 01/12/20 09:01 Polyethylene Glycol (Miralax) 17 gm HSPRN PRN ORAL Constipation 01/11/20 17:00 02/10/20 16:59 Sennosides (Senokot) 8.6 mg DAILY ORAL 01/11/20 21:00 02/10/20 20:59 01/12/20 09:01 Tamsulosin HCl (Flomax) 0.4 mg DAILY ORAL 01/12/20 09:00 02/11/20 08:59 01/12/20 09:01 Temazepam (Restoril) 15 mg HSPRN PRN ORAL Insomnia 01/11/20 17:00 01/18/20 16:59 01/12/20 23:04 Laboratory Tests 01/12/20 11:47: POC Whole Blood Glucose [Pending] 01/12/20 16:31: POC Whole Blood Glucose 259H 01/12/20 20:08: POC Whole Blood Glucose 171H 01/13/20 04:40: White Blood Count 4.8, Red Blood Count 4.45L, Hemoglobin 15.1, Hematocrit 42.0, Mean Corpuscular Volume 95, Mean Corpuscular Hemoglobin 34.0H, Mean Corpuscular Hemoglobin Concent 36.0, Red Cell Distribution Width 12.8, Platelet Count 84L, Mean Platelet Volume 7.4, Neutrophils (%) (Auto) , Lymphocytes (%) (Auto) , Monocytes (%) (Auto) , Eosinophils (%) (Auto) , Basophils (%) (Auto) , Neutrophils % (Manual) [Pending], Lymphocytes % (Manual) [Pending], Platelet Estimate [Pending], Platelet Morphology [Pending], Sodium Level 138, Potassium Level 3.7, Chloride Level 105, Carbon Dioxide Level 28, Anion Gap 5, Blood Urea Nitrogen 9, Creatinine 1.0, Estimat Glomerular Filtration Rate > 60, Glucose Level 142H, Calcium Level 8.1L 11/11/20 05:35: POC Whole Blood Glucose 132H Height (Feet): 5 Height (Inches): 5.00 Weight (Pounds): 210 Objective exam stable no scrotal fluctuance Marcellus Navarro MD Jan 13, 2020 08:49
[2020-01-13] MEDS: hydroCHLOROthiazide 12.5mg TAB ORAL SCH (09:05)
[2020-01-13] MEDS: Tamsulosin 0.4mg cap ORAL SCH (09:05)
[2020-01-13] MEDS: Sennosides 8.6mg tab ORAL SCH (09:05)
[2020-01-13] MEDS: Docusate 100mg cap ORAL SCH ×2 (09:05→20:09)
[2020-01-13] MEDS: Miralax 17gm pkt ORAL SCH (09:06)
[2020-01-13] MEDS: Enoxaparin 40mg Inj SUBQ SCH (09:07)
[2020-01-13] MEDS: Mylanta II UD 30ml ORAL PRN (09:14)
--- NOTE | 2020-01-13 13:33 | NUR ---
CASE MANAGEMENT:REVIEW SI;SCROTAL CELLULITIS. LT ORCHITIS. HYDROCELE. UTI. 98.9 100 16 147/87 95% ON RA BG 142 CA 8.1 IS;LOVENOX SUBQ QD PROSCAR PO QD FLOMAX PO QD PEPCID PO QD ZOSYN IV Q8 MED SURG STATUS DCP;FROM [facility] CENTER PLAN; SCROTAL SUPPORT
--- NOTE | 2020-01-13 15:00 | General Progress Note ---
Subjective Date patient seen: Jan 13, 2020 Time patient seen: 14:00 ROS Limited/Unobtainable: No Allergies: Coded Allergies: No Known Allergies (Unverified , 01/11/20) Subjective Testicular pain is improved. No fever. no BM now in 5 days despite laxatives since admission. Objective Last 24 Hour Vital Signs Date Time Temp Pulse Resp B/P (MAP) Pulse Ox O2 Delivery O2 Flow Rate FiO2 01/13/20 12:00 98.9 95 16 125/88 (100) 96 01/13/20 09:00 Room Air 01/13/20 08:00 98.9 100 16 123/86 (98) 95 01/13/20 04:00 98.0 96 16 144/90 (108) 95 01/13/20 00:00 97.6 78 15 147/87 (107) 97 01/12/20 19:36 Room Air 01/12/20 19:35 97.8 81 16 131/78 (95) 97 01/12/20 16:00 98.2 80 16 128/75 (92) 99 Intake and Output 01/12/20 01/13/20 19:00 07:00 Intake Total 1785.0 ml 1015 ml Output Total 700 ml 1350 ml Balance 1085.0 ml -335 ml Intake Oral 1000 ml 940 ml IV Total 785.0 ml 75 ml Output Urine Total 700 ml 1350 ml # Voids 6 Laboratory Tests 01/12/20 16:31: POC Whole Blood Glucose 259H 01/12/20 20:08: POC Whole Blood Glucose 171H 01/13/20 04:40: White Blood Count 4.8, Red Blood Count 4.45L, Hemoglobin 15.1, Hematocrit 42.0, Mean Corpuscular Volume 95, Mean Corpuscular Hemoglobin 34.0H, Mean Corpuscular Hemoglobin Concent 36.0, Red Cell Distribution Width 12.8, Platelet Count 84L, Mean Platelet Volume 7.4, Neutrophils (%) (Auto) , Lymphocytes (%) (Auto) , Monocytes (%) (Auto) , Eosinophils (%) (Auto) , Basophils (%) (Auto) , D ifferential Total Cells Counted 100, Neutrophils % (Manual) 56, Lymphocytes % (Manual) 27, Monocytes % (Manual) 15H, Eosinophils % (Manual) 2, Basophils % (Manual) 0, Band Neutrophils 0, Platelet Estimate DecreasedL, Platelet Morphology Normal, Red Blood Cell Morphology Normal, Sodium Level 138, Potassium Level 3.7, Chloride Level 105, Carbon Dioxide Level 28, Anion Gap 5, Blood Urea Nitrogen 9, Creatinine 1.0, Estimat Glomerular Filtration Rate > 60, Glucose Level 142H, Calcium Level 8.1L 01/13/20 05:35: POC Whole Blood Glucose 132H 01/13/20 11:24: POC Whole Blood Glucose [Pending] Height (Feet): 5 Height (Inches): 5.00 Weight (Pounds): 210 General Appearance: WD/WN EENT: PERRL/EOMI Neck: non-tender Cardiovascular: normal rate Respiratory/Chest: lungs clear Abdomen: soft 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 Coli #Left orchitis # Scrotal swelling - hydrocele # Testicular pain IV antibiotic Zosyn started and will continue pending final urine culture Urology consult with Dr. Navarro appreciated. Patient has a history of BPH Testicular elevation with rolled up towel for comfort and decrease of pain # T2DM Hold home Metformin while in the hospital - active infection Insulin sliding scale for now Monitor BG # BPH Resume Tamsulosin and Finasteride #Polyneuropathy Resume Gabapentin # History of recovered Covid 19 in the past Stable at this time. PT evaluation for mobility protocol when able to participate DVT ppx with LMWH hold if platelets less than 50 K GI ppx with Famotidine FULL CODE59 y/o male admitted to the Hospital with: # UTI #Left orchitis # Scrotal swelling - hydrocele # Testicular pain IV antibiotic Zosyn started and will continue pending final urine culture Urology consult with Dr. Navarro appreciated. Patient has a history of BPH Testicular elevation with rolled up towel for comfort and decrease of pain # T2DM Hold home Metformin while in the hospital - active infection Insulin sliding scale for now Monitor BG # BPH Resume Tamsulosin and Finasteride #Polyneuropathy Resume Gabapentin # History of recovered Covid 19 in the past Stable at this time. PT evaluation for mobility protocol when able to participate DVT ppx with LMWH hold if platelets less than 50 K GI ppx with Famotidine FULL CODE Rosas Rodriguez MD Jan 13, 2020 15:00
--- NOTE | 2020-01-13 15:03 | NUR ---
SOFTWARE CLIENT ARCHITECT NOTE SW met w/ pt to discuss his concern. Pt presents as A&O 4x. Pt reports he was residing w/ his mother in the past. His sister and brother accommodated a different placement a year ago. As pt is estranged to his siblings, he is unable to get in contact w/ his mother. Pt has an adult daughter named Lamar Lopes. Pt reports he has been staying at [facility] over a month. Pt was staying w/ roommates prior to his admission at [facility]. Pt receives [employer] and food stamp and has some income available for this month. Per pt, he is currently working w/ a social and human services assistant from [facility], named Ashley Song to apply SSI. [facility] provided resource on SSI. Pt uses a walker to ambulate. As per request, [facility] asked pt's ex-, Barbara [phone] to bring his extra cellphone from SNF. Other emergency contact; Wilder Alba (friend) [phone]
[2020-01-13] MEDS ORDERED: NEURONTIN300 MG ORAL (15:23)
[2020-01-13] MEDS ORDERED: OXYBUTYNIN CHLOR5 M1 ORAL (15:23)
[2020-01-13] MEDS ORDERED: Magnesium Citrate Liq Btl ORAL SCH (16:00)
--- NOTE | 2020-01-13 20:00 | NUR ---
NURSE HAND-OFF: Important Events on Shift:[No BM, Pain is controlled] Patient Status: [stable] Diet: [ccho] Pending Orders: [] Pending Results/Labs:[] Pending MD notification:[] Latest Vital Signs: Temperature 98.7 , Pulse 95 , B/P 130 /84 , Respiratory Rate 16 , O2 SAT 97 , Room Air, O2 Flow Rate . Vital Sign Comment: [stable] Latest Romero Fall Score: 50 Fall Risk: High Risk Safety Measures: Call light Within Reach, Bed Alarm , Side Rails Side Rails x2, Bed position Low and Locked. Fall Precautions: Patient Fall Education Report given to [SHAZIA Arnold].
--- NOTE | 2020-01-13 20:01 | NUR ---
NURSE NOTES: Received report & pt from SHAZIA Larson. Pt sitting in chair, a&ox4, in room air. No s/s of acute distress & no c/o pain at this time. IV site intact & S/L'd. Wearing jock strap for scrotal support. Plan of care discussed.
--- NOTE | 2020-01-13 20:10 | NUR ---
NURSE NOTES: Per pt, already passed BM x 2, liquid consistency. Held scheduled colace.
[2020-01-13] MEDS: Morphine Sulfate 2mg/ml Inj(IV/IM USE ONLY) IVP PRN (21:07)
--- NOTE | 2020-01-14 01:11 | NUR ---
NURSE NOTES: Pt asleep. In no acute distress. Breathing unlabored.
[2020-01-14 03:49] VITALS: BP 102/63
[2020-01-14 04:08] VITALS: BP 135/91
[2020-01-14] MEDS: Piperacillin/Tazobactam 3.375 GM in NS 110 ML IVPB SCH ×3 (05:16→21:18)
[2020-01-14] MEDS: NovoLOG Insulin Flexpen SUBQ SCH ×4 (05:57→21:19)
[2020-01-14 06:45] LABS: HEMATOCRIT 40.7 % (42.0-52.0); HEMOGLOBIN 14.2 G/DL (14.2-18.0); MEAN CORPUSCULAR VOLUME 96 FL (80-99); PLATELET COUNT 83 K/UL (150-450); RED BLOOD COUNT 4.25 M/UL (4.70-6.10); WHITE BLOOD COUNT 3.7 K/UL (4.8-10.8)
--- NOTE | 2020-01-14 06:57 | NUR ---
NURSE HAND-OFF: Important Events on Shift:pain management Patient Status: stable Diet: ccho (m) Pending Orders: none Pending Results/Labs:none Pending MD notification:none Latest Vital Signs: Temperature 98.0 , Pulse 87 , B/P 135 /91 , Respiratory Rate 16 , O2 SAT 98 , Room Air, O2 Flow Rate . Vital Sign Comment: none Latest Romero Fall Score: 50 Fall Risk: High Risk Safety Measures: Call light Within Reach, Bed Alarm , Side Rails Side Rails x2, Bed position Low and Locked. Fall Precautions: Patient Fall Education Report given to . Addendum: 01/14/20 at 721 by Catalina Griffiths RN Report given to SHAZIA Hanson. Addendum: 01/14/20 at 722 by Catalina Griffiths RN Endorsed to f/u potassium result to
[2020-01-14 07:03] LABS: ANION GAP 4 mmol/L (5-15); BLOOD UREA NITROGEN 9 mg/dL (7-18); CALCIUM 8.2 MG/DL (8.5-10.1); CARBON DIOXIDE 32 MMOL/L (21-32); CHLORIDE 103 MMOL/L (98-107); CREATININE 0.9 MG/DL (0.55-1.30); POTASSIUM 3.1 MMOL/L (3.5-5.1); SODIUM 139 MMOL/L (136-145)
--- NOTE | 2020-01-14 07:30 | Urology Progress Note ---
Assessment/Plan Status: stable Assessment/Plan: 1. Probable left orchitis. 2. Reactive hydrocele. 3. Urinary frequency. 4. Pyuria/UTI. 5. Hematuria. 6. Proteinuria. 7. BPH. 8. Rule out neurogenic bladder. monitor clinically abx as ordered scrotal support flomax Subjective Allergies: Coded Allergies: No Known Allergies (Unverified , 01/11/20) Subjective all noted, feels fair, voiding Objective Last 24 Hour Vital Signs Date Time Temp Pulse Resp B/P (MAP) Pulse Ox O2 Delivery O2 Flow Rate FiO2 01/14/20 04:08 98.0 87 16 135/91 (106) 98 01/13/20 23:14 97.6 83 18 130/77 (94) 95 01/13/20 20:46 Room Air 01/13/20 20:08 97.9 88 16 153/87 (109) 99 01/13/20 16:00 98.7 95 16 130/84 (99) 97 01/13/20 12:00 98.9 95 16 125/88 (100) 96 01/13/20 09:00 Room Air 01/13/20 08:00 98.9 100 16 123/86 (98) 95 Intake and Output 01/13/20 01/14/20 19:00 07:00 Intake Total 1000 ml 580 ml Output Total 1200 ml 350 ml Balance -200 ml 230 ml Intake Oral 1000 ml 580 ml Output Urine Total 1200 ml 350 ml # Voids 4 # Bowel Movements 3 Microbiology Date/Time Source Procedure Growth Status 01/11/20 16:54 Nasopharynx SARS-CoV-2 RdRp Gene Assay - Final Complete 01/11/20 16:42 Rectum VRE Culture - Final NO VANCOMYCIN RESISTANT ENTEROCOCCUS ... Complete 01/11/20 12:15 Urine,Clean Catch Urine Culture - Final Escherichia Coli Complete 01/11/20 12:15 Blood Blood Culture - Preliminary NO GROWTH AFTER 48 HOURS Resulted Current Medications Medications (Trade) Dose Ordered Sig/Chau Route PRN Reason Start Time Stop Time Status Last Admin Dose Admin Acetaminophen (Tylenol) 650 mg Q4H PRN ORAL Mild Pain (Pain Scale 1-3) 01/11/20 17:00 02/10/20 16:59 Acetaminophen/ Hydrocodone Bitart ([place] 5/325) 1 tab Q6H PRN ORAL Moderate Pain (Pain Scale 4-6) 01/11/20 18:00 11/16/20 17:59 01/11/20 21:56 Al Hydroxide/Mg Hydroxide (Mylanta II) 30 ml Q6H PRN ORAL dyspepsia 01/11/20 17:00 02/10/20 16:59 01/13/20 09:14 Dextrose (Dextrose 50%) 25 ml Q30M PRN IV Hypoglycemia 01/11/20 17:15 04/10/20 17:14 Dextrose (Dextrose 50%) 50 ml Q30M PRN IV Hypoglycemia 01/11/20 17:15 04/10/20 17:14 Docusate Sodium (Colace) 100 mg EVERY 12 HOURS ORAL 01/11/20 21:00 02/10/20 20:59 01/13/20 09:05 Enoxaparin Sodium (Lovenox) 40 mg DAILY SUBQ 01/12/20 12:00 04/11/20 11:59 01/13/20 09:07 Famotidine (Pepcid) 40 mg DAILY ORAL 01/12/20 09:00 04/11/20 08:59 01/13/20 09:06 Finasteride (Proscar) 5 mg DAILY ORAL 01/12/20 09:00 04/11/20 08:59 01/13/20 09:05 Gabapentin (Neurontin) 300 mg THREE TIMES A DAY ORAL 01/11/20 21:00 02/10/20 20:59 01/13/20 17:00 Hydrochlorothiazide (Hydrodiuril) 12.5 mg DAILY ORAL 01/12/20 09:00 02/11/20 08:59 01/13/20 09:05 Insulin Aspart (NovoLOG) BEFORE MEALS AND HS SUBQ 01/11/20 21:00 04/10/20 20:59 01/14/20 05:57 Morphine Sulfate (Morphine Sulfate) 1 mg Q3H PRN IVP mild pain 01/11/20 17:00 01/18/20 16:59 Morphine Sulfate (Morphine Sulfate) 2 mg Q3H PRN IVP severe pain 01/11/20 17:00 01/18/20 16:59 01/13/20 21:07 Morphine Sulfate (Morphine Sulfate) 2 mg Q4H PRN IVP MODERATE PAIN 01/11/20 17:00 01/18/20 16:59 Ondansetron HCl (Zofran) 4 mg Q6H PRN IVP Nausea & Vomiting 01/11/20 17:00 02/10/20 16:59 Piperacillin Sod/ Tazobactam Sod 3.375 gm/Sodium Chloride 110 ml @ 27.5 mls/hr EVERY 8 HOURS IVPB 01/11/20 22:00 01/18/20 21:59 01/14/20 05:16 Polyethylene Glycol (Miralax) 17 gm DAILY ORAL 01/11/20 21:00 02/10/20 20:59 01/13/20 09:06 Polyethylene Glycol (Miralax) 17 gm HSPRN PRN ORAL Constipation 01/11/20 17:00 02/10/20 16:59 Sennosides (Senokot) 8.6 mg DAILY ORAL 01/11/20 21:00 02/10/20 20:59 01/13/20 09:05 Tamsulosin HCl (Flomax) 0.4 mg DAILY ORAL 01/12/20 09:00 02/11/20 08:59 01/13/20 09:05 Temazepam (Restoril) 15 mg HSPRN PRN ORAL Insomnia 01/11/20 17:00 01/18/20 16:59 01/13/20 23:03 Laboratory Tests 01/13/20 11:24: POC Whole Blood Glucose [Pending] 01/13/20 16:57: POC Whole Blood Glucose [Pending] 01/13/20 20:11: POC Whole Blood Glucose 235H 01/14/20 04:00: White Blood Count 3.7L, Red Blood Count 4.25L, Hemoglobin 14.2, Hematocrit 40.7L , Mean Corpuscular Volume 96, Mean Corpuscular Hemoglobin 33.5H, Mean Corpuscular Hemoglobin Concent 35.0, Red Cell Distribution Width 13.0, Platelet Count 83L, Mean Platelet Volume 7.1, Neutrophils (%) (Auto) , Lymphocytes (%) (Auto) , Monocytes (%) (Auto) , Eosinophils (%) (Auto) , Basophils (%) (Auto) , Neutrophils % (Manual) [Pending], Lymphocytes % (Manual) [Pending], Platelet Es timate [Pending], Platelet Morphology [Pending] 01/14/20 05:25: POC Whole Blood Glucose 198H 01/14/20 06:00: Sodium Level 139, Potassium Level 3.1L, Chloride Level 103, Carbon Dioxide Level 32, Anion Gap 4L, Blood Urea Nitrogen 9, Creatinine 0.9, Estimat Glomerular Filtration Rate > 60, Glucose Level 185H, Calcium Level 8.2L Height (Feet): 5 Height (Inches): 5.00 Weight (Pounds): 210 Objective exam stable no scrotal fluctuance Marcellus Navarro MD Jan 14, 2020 07:30
--- NOTE | 2020-01-14 07:30 | NUR ---
NURSE NOTES: Patient is up in chair eating breakfast. Stable. Patient instructed to use call light for assistance, verbalized understanding. Patient is running IV antibiotics as ordered. Plan of care discussed with patient. All needs met at this time, call light within reach. Will continue to monitor.
[2020-01-14 08:00] VITALS: BP 131/88
--- NOTE | 2020-01-14 08:30 | NUR ---
NURSE NOTES: Towels and linen provided. Sonu bonds noted. Patient instructed to keep scrotum elevated, patient verbalized understanding.
[2020-01-14] MEDS: Enoxaparin 40mg Inj SUBQ SCH (08:57)
[2020-01-14] MEDS: Docusate 100mg cap ORAL SCH ×2 (08:57→21:18)
[2020-01-14] MEDS: hydroCHLOROthiazide 12.5mg TAB ORAL SCH (08:57)
[2020-01-14] MEDS: Tamsulosin 0.4mg cap ORAL SCH (08:57)
[2020-01-14] MEDS: HYDROcodone/Acetamin 5/325 tab ORAL PRN (08:58)
[2020-01-14] MEDS: Miralax 17gm pkt ORAL SCH (09:00)
[2020-01-14] MEDS: Sennosides 8.6mg tab ORAL SCH (09:00)
[2020-01-14 12:02] VITALS: BP 136/92
--- NOTE | 2020-01-14 15:40 | NUR ---
CASE MANAGEMENT:REVIEW SI;SCROTAL CELLULITIS. LT ORCHITIS. HYDROCELE. UTI. 98.7 91 19 136/92 95% ON RA WBC 3.7 K+ 3.4 BG 198 IS;MAG CITRATE PO ONCE LOVENOX SUBQ QD HCTZ PO QD PEPCID PO QD ZOSYN IV Q8 MED SURG [facility]
--- NOTE | 2020-01-14 15:45 | General Progress Note ---
Subjective Date patient seen: Jan 14, 2020 Time patient seen: 16:00 ROS Limited/Unobtainable: No Allergies: Coded Allergies: No Known Allergies (Unverified , 01/11/20) Subjective Testicular pain is improved. No fever. no BM SINCE ADMISSION AND ONLY MILD L OOSE STOOL POST MAG CITRATE LAST NIGHT. Objective Last 24 Hour Vital Signs Date Time Temp Pulse Resp B/P (MAP) Pulse Ox O2 Delivery O2 Flow Rate FiO2 01/14/20 12:02 98.4 87 19 136/92 (107) 97 01/14/20 09:00 Room Air 01/14/20 08:00 98.7 91 19 131/88 (102) 97 01/14/20 04:08 98.0 87 16 135/91 (106) 98 01/13/20 23:14 97.6 83 18 130/77 (94) 95 01/13/20 20:46 Room Air 01/13/20 20:08 97.9 88 16 153/87 (109) 99 01/13/20 16:00 98.7 95 16 130/84 (99) 97 Intake and Output 01/13/20 01/14/20 19:00 07:00 Intake Total 1000 ml 580 ml Output Total 1200 ml 350 ml Balance -200 ml 230 ml Intake Oral 1000 ml 580 ml Output Urine Total 1200 ml 350 ml # Voids 4 # Bowel Movements 3 Laboratory Tests 01/13/20 16:57: POC Whole Blood Glucose [Pending] 01/13/20 20:11: POC Whole Blood Glucose 235H 01/14/20 04:00: White Blood Count 3.7L, Red Blood Count 4.25L, Hemoglobin 14.2, Hematocrit 40.7L , Mean Corpuscular Volume 96, Mean Corpuscular Hemoglobin 33.5H, Mean Corpuscular Hemoglobin Concent 35.0, Red Cell Distribution Width 13.0, Platelet Count 83L, Mean Platelet Volume 7.1, Neutrophils (%) (Auto) , Lymphocytes (%) (Auto) , Monocytes (%) (Auto) , Eosinophils (%) (Auto) , Basophils (%) (Auto) , Differential Total Cells Counted 100, Neutrophils % (Manual) 63, Lymphocytes % (Manual) 15L, Monocytes % (Manual) 16H, Eosinophils % (Manual) 3, Basophils % (Manual) 0, Band Neutrophils 3, Platelet Estimate DecreasedL, Platelet Morphology Normal, Red Blood Cell Morphology Normal 01/14/20 05:25: POC Whole Blood Glucose 198H 01/14/20 06:00: Sodium Level 139, Potassium Level 3.1L, Chloride Level 103, Carbon Dioxide Level 32, Anion Gap 4L, Blood Urea Nitrogen 9, Creatinine 0.9, Estimat Glomerular Filtration Rate > 60, Glucose Level 185H, Calcium Level 8.2L 01/14/20 11:31: POC Whole Blood Glucose [Pending] Height (Feet): 5 Height (Inches): 5.00 Weight (Pounds): 210 EENT: PERRL/EOMI Neck: non-tender Cardiovascular: normal rate Respiratory/Chest: lungs clear Abdomen: non tender - SWELLING OF LEFT TESTIS Edema: trace edema 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 Coli #Left orchitis # Scrotal swelling - hydrocele # Testicular pain IV antibiotic Zosyn started and will TRANSITION to oral antibiotic when dc back to SNF Urology consult with Dr. Navarro appreciated. Patient has a history of BPH Testicular elevation with rolled up towel for comfort and decrease of pain # T2DM Hold home Metformin while in the hospital - active infection Insulin sliding scale for now Monitor BG # BPH Resume Tamsulosin and Finasteride #Polyneuropathy Resume Gabapentin # History of recovered Covid 19 in the past Stable at this time. # Hypokalemia Replete today and monitor in AM # Constipation Laxative follow up dose today. PT evaluation for mobility protocol when able to participate DVT ppx with LMWH hold if platelets less than 50 K GI ppx with Famotidine FULL CODE Rosas Rodriguez MD Jan 14, 2020 15:45
[2020-01-14 16:00] VITALS: BP 144/96
--- NOTE | 2020-01-14 16:32 | NUR ---
INSURANCE CLINICALS AND REVIEW FAXED TO [facility] [phone] F [phone]
[2020-01-14] MEDS ORDERED: Magnesium Citrate Liq Btl ORAL SCH (17:00)
--- NOTE | 2020-01-14 19:24 | NUR ---
NURSE HAND-OFF: Important Events on Shift: iv antibiotics Patient Status: stable Diet: ccho medium Pending Orders: n/a Pending Results/Labs:n/a Pending MD notification:n/a Latest Vital Signs: Temperature 97.8 , Pulse 93 , B/P 144 /96 , Respiratory Rate 18 , O2 SAT 97 , Room Air, O2 Flow Rate . Vital Sign Comment: n/a Latest Romero Fall Score: 50 Fall Risk: High Risk Safety Measures: Call light Within Reach, Bed Alarm , Side Rails Side Rails x2, Bed position Low and Locked. Fall Precautions: Patient Fall Education Report given to Catalina MCCRAY.
--- NOTE | 2020-01-14 19:32 | NUR ---
NURSE NOTES: Received report & pt from SHAZIA Hanson. Pt sitting in chair, a&ox4, in room air. No s/s of acute distress & no c/o pain at this time. IV site intact & S/L'd. Plan of care discussed.
[2020-01-14 20:00] VITALS: BP 145/98
[2020-01-15 00:12] VITALS: BP 113/58
[2020-01-15 04:24] VITALS: BP 107/54
[2020-01-15] MEDS: Piperacillin/Tazobactam 3.375 GM in NS 110 ML IVPB SCH ×2 (05:39→14:02)
[2020-01-15] MEDS: NovoLOG Insulin Flexpen SUBQ SCH ×3 (05:55→16:30)
--- NOTE | 2020-01-15 06:31 | NUR ---
NURSE HAND-OFF: Important Events on Shift:small loose bm last night x2 Patient Status: stable Diet: ccho (m) Pending Orders: none Pending Results/Labs:none Pending MD notification:none Latest Vital Signs: Temperature 98.2 , Pulse 72 , B/P 107 /54 , Respiratory Rate 20 , O2 SAT 100 , Room Air, O2 Flow Rate . Vital Sign Comment: none Latest Romero Fall Score: 50 Fall Risk: High Risk Safety Measures: Call light Within Reach, Bed Alarm , Side Rails Side Rails x2, Bed position Low and Locked. Fall Precautions: Patient Fall Education Report given to . Addendum: 01/15/20 at 0710 by Catalina Griffiths RN Report given to SHAZIA Schulte.
[2020-01-15 06:55] LABS: HEMATOCRIT 40.5 % (42.0-52.0); HEMOGLOBIN 14.3 G/DL (14.2-18.0); MEAN CORPUSCULAR VOLUME 96 FL (80-99); PLATELET COUNT 89 K/UL (150-450); RED BLOOD COUNT 4.22 M/UL (4.70-6.10); RED CELL DISTRIBUTION WIDTH 12.9 % (11.6-14.8); WHITE BLOOD COUNT 3.3 K/UL (4.8-10.8)
--- NOTE | 2020-01-15 07:20 | NUR ---
NURSE NOTES: Handoff received from Catalina MCCRAY. Patient is awake and alert, no reports of pain at this time. Patient wearing scrotum support brief with rolled towel underneath scrotum. Patient updated on plan of care. Bed is low and locked side rails up x2, call light is within reach
[2020-01-15 07:22] LABS: ANION GAP 4 mmol/L (5-15); BLOOD UREA NITROGEN 7 mg/dL (7-18); CALCIUM 8.3 MG/DL (8.5-10.1); CARBON DIOXIDE 31 MMOL/L (21-32); CHLORIDE 106 MMOL/L (98-107); POTASSIUM 3.3 MMOL/L (3.5-5.1); SODIUM 141 MMOL/L (136-145)
[2020-01-15 08:00] VITALS: BP 155/96
[2020-01-15] MEDS: hydroCHLOROthiazide 12.5mg TAB ORAL SCH (09:27)
[2020-01-15] MEDS: Sennosides 8.6mg tab ORAL SCH (09:27)
[2020-01-15] MEDS: Tamsulosin 0.4mg cap ORAL SCH (09:27)
[2020-01-15] MEDS: Docusate 100mg cap ORAL SCH (09:27)
[2020-01-15] MEDS: Miralax 17gm pkt ORAL SCH (09:29)
[2020-01-15] MEDS: Enoxaparin 40mg Inj SUBQ SCH (09:29)
--- NOTE | 2020-01-15 10:58 | Urology Progress Note ---
Assessment/Plan Status: stable Assessment/Plan: 1. Probable left orchitis. 2. Reactive hydrocele. 3. Urinary frequency. 4. Pyuria/UTI. 5. Hematuria. 6. Proteinuria. 7. BPH. 8. Rule out neurogenic bladder. monitor clinically abx as ordered scrotal support flomax f/u on blood cx Subjective Allergies: Coded Allergies: No Known Allergies (Unverified , 01/11/20) Subjective all noted, feels fair, voiding Objective Last 24 Hour Vital Signs Date Time Temp Pulse Resp B/P (MAP) Pulse Ox O2 Delivery O2 Flow Rate FiO2 01/15/20 04:24 98.2 72 20 107/54 (71) 100 01/15/20 00:12 97.6 64 20 113/58 (76) 100 01/14/20 23:09 Room Air 01/14/20 20:00 98.1 90 18 145/98 (114) 96 01/14/20 16:00 97.8 93 18 144/96 (112) 97 01/14/20 12:02 98.4 87 19 136/92 (107) 97 Intake and Output 01/14/20 01/15/20 19:00 07:00 Intake Total 620 ml Output Total 750 ml Balance -130 ml Intake Oral 620 ml Output Urine Total 750 ml Microbiology Date/Time Source Procedure Growth Status 01/11/20 16:54 Nasopharynx SARS-CoV-2 RdRp Gene Assay - Final Complete 01/11/20 16:42 Rectum VRE Culture - Final NO VANCOMYCIN RESISTANT ENTEROCOCCUS ... Complete 01/11/20 12:15 Urine,Clean Catch Urine Culture - Final Escherichia Coli Complete 01/11/20 12:15 Blood Blood Culture - Preliminary NO GROWTH AFTER 72 HOURS Resulted Current Medications Medications (Trade) Dose Ordered Sig/Chau Route PRN Reason Start Time Stop Time Status Last Admin Dose Admin Acetaminophen (Tylenol) 650 mg Q4H PRN ORAL Mild Pain (Pain Scale 1-3) 01/11/20 17:00 02/10/20 16:59 Acetaminophen/ Hydrocodone Bitart ([place] 5/325) 1 tab Q6H PRN ORAL Moderate Pain (Pain Scale 4-6) 01/11/20 18:00 01/18/20 17:59 01/14/20 08:58 Al Hydroxide/Mg Hydroxide (Mylanta II) 30 ml Q6H PRN ORAL dyspepsia 01/11/20 17:00 02/10/20 16:59 01/13/20 09:14 Dextrose (Dextrose 50%) 25 ml Q30M PRN IV Hypoglycemia 01/11/20 17:15 04/10/20 17:14 Dextrose (Dextrose 50%) 50 ml Q30M PRN IV Hypoglycemia 01/11/20 17:15 04/10/20 17:14 Docusate Sodium (Colace) 100 mg EVERY 12 HOURS ORAL 01/11/20 21:00 02/10/20 20:59 01/15/20 09:27 Enoxaparin Sodium (Lovenox) 40 mg DAILY SUBQ 01/12/20 12:00 04/11/20 11:59 01/15/20 09:29 Famotidine (Pepcid) 40 mg DAILY ORAL 01/12/20 09:00 04/11/20 08:59 01/15/20 09:27 Finasteride (Proscar) 5 mg DAILY ORAL 01/12/20 09:00 04/11/20 08:59 01/15/20 09:27 Gabapentin (Neurontin) 300 mg THREE TIMES A DAY ORAL 01/11/20 21:00 02/10/20 20:59 01/15/20 09:27 Hydrochlorothiazide (Hydrodiuril) 12.5 mg DAILY ORAL 01/12/20 09:00 02/11/20 08:59 01/15/20 09:27 Insulin Aspart (NovoLOG) BEFORE MEALS AND HS SUBQ 01/11/20 21:00 04/10/20 20:59 01/15/20 05:55 Morphine Sulfate (Morphine Sulfate) 1 mg Q3H PRN IVP mild pain 01/11/20 17:00 01/18/20 16:59 Morphine Sulfate (Morphine Sulfate) 2 mg Q3H PRN IVP severe pain 01/11/20 17:00 01/18/20 16:59 01/13/20 21:07 Morphine Sulfate (Morphine Sulfate) 2 mg Q4H PRN IVP MODERATE PAIN 01/11/20 17:00 01/18/20 16:59 Ondansetron HCl (Zofran) 4 mg Q6H PRN IVP Nausea & Vomiting 01/11/20 17:00 02/10/20 16:59 Piperacillin Sod/ Tazobactam Sod 3.375 gm/Sodium Chloride 110 ml @ 27.5 mls/hr EVERY 8 HOURS IVPB 01/11/20 22:00 01/18/20 21:59 01/15/20 05:39 Polyethylene Glycol (Miralax) 17 gm DAILY ORAL 01/11/20 21:00 02/10/20 20:59 01/15/20 09:29 Polyethylene Glycol (Miralax) 17 gm HSPRN PRN ORAL Constipation 01/11/20 17:00 02/10/20 16:59 Potassium Chloride (K-Dur) 40 meq ONCE ORAL 01/15/20 10:00 01/15/20 11:00 Sennosides (Senokot) 8.6 mg DAILY ORAL 01/11/20 21:00 02/10/20 20:59 01/15/20 09:27 Tamsulosin HCl (Flomax) 0.4 mg DAILY ORAL 01/12/20 09:00 02/11/20 08:59 01/15/20 09:27 Temazepam (Restoril) 15 mg HSPRN PRN ORAL Insomnia 01/11/20 17:00 01/18/20 16:59 01/13/20 23:03 Laboratory Tests 01/14/20 11:31: POC Whole Blood Glucose [Pending] 01/14/20 16:38: POC Whole Blood Glucose [Pending] 01/14/20 21:17: POC Whole Blood Glucose 270H 01/15/20 05:49: POC Whole Blood Glucose 185H 01/15/20 05:50: White Blood Count 3.3L, Red Blood Count 4.22L, Hemoglobin 14.3, Hematocrit 40.5L , Mean Corpuscular Volume 96, Mean Corpuscular Hemoglobin 33.9H, Mean Corpuscular Hemoglobin Concent 35.3, Red Cell Distribution Width 12.9, Platelet Count 89L, Mean Platelet Volume 6.9, Neutrophils (%) (Auto) , Lymphocytes (%) (Auto) , Monocytes (%) (Auto) , Eosinophils (%) (Auto) , Basophils (%) (Auto) , Differential Total Cells Counted 100, Neutrophils % (Manual) 58, Lymphocytes % (Manual) 27, Monocytes % (Manual) 14H, Eosinophils % (Manual) 1, Basophils % (Manual) 0, Band Neutrophils 0, Platelet Estimate DecreasedL, Platelet Morphology Normal, Red Blood Cell Morphology Normal, Sodium Level 141, Potassium Level 3.3L, Chloride Level 106, Carbon Dioxide Level 31, Anion Gap 4L, Blood Urea Nitrogen 7, Creatinine 1.0, Estimat Glomerular Filtration Rate > 60, Glucose Level 190H, Calcium Level 8.3L, Phosphorus Level 3.0, Magnesium Level 2.3 Height (Feet): 5 Height (Inches): 5.00 Weight (Pounds): 210 Objective exam stable no scrotal fluctuance Marcellus Navarro MD Jan 15, 2020 10:58
--- NOTE | 2020-01-15 11:00 | NUR ---
NURSE NOTES: WSpoke with Dr. Rodriguez about patient's 3.3 potassium level. Orders received, read back and carried out.
[2020-01-15 12:00] VITALS: BP 149/96
[2020-01-15] MEDS ORDERED: MIRALAX119 GM ORAL (13:00)
[2020-01-15] MEDS ORDERED: HYDROCODON-ACE1 EA15 ORAL (13:00)
[2020-01-15] MEDS ORDERED: SENNA8.6 M2 ORAL (13:00)
[2020-01-15] MEDS ORDERED: FINASTERIDE5 MG ORAL (13:00)
[2020-01-15] MEDS ORDERED: BACTRIM DS TAB1 EAC1 ORAL (13:00)
--- NOTE | 2020-01-15 13:05 | Discharge Summary ---
Discharge Summary Hospital Course Date of Admission Jan 11, 2020 at 14:31 Date of Discharge 01/15/2020 Admitting Diagnosis SCROTAL CELLULITIS HPI Jack Lopes is a 59 year old male who was admitted on Jan 11, 2020 at 14:31 for Scrotal Cellulitis Hospital Course 59 y/o male admitted to the Hospital with: # UTI due to E. Coli #Left orchitis # Scrotal swelling - hydrocele # Testicular pain IV antibiotic Zosyn started and will TRANSITION to oral antibiotic when dc back to SNF with TMP/SMX to complete treatment. Urology consult with Dr. Navarro appreciated. Patient has a history of BPH and no surgical intervention was recommended. Testicular elevation with rolled up towel for comfort and decrease of pain # T2DM Held home Metformin while in the hospital - active infection Insulin sliding scale for now Monitor BG Will re start Metformin at SNF # BPH Resume Tamsulosin and Finasteride, add Oxybutin at SNF with is a POA medication as well. #Polyneuropathy Resume Gabapentin # History of recovered Covid 19 in the past Stable at this time. NEGATIVE # Hypokalemia Resolved. # Constipation Laxative follow up PRN at SNF PT evaluation for mobility protocol was done and he is able to ambulate with FWW for safety. Medically stable to discharge to SNF today. FULL CODE Discharge Medications New Medications: Trimethoprim/Sulfamethoxazole 160/800* (Bactrim Ds Tablet*) 1 Each Tablet 1 TAB ORAL Q12H for 7 Days, #14 TAB 0 Refills Finasteride (Finasteride) 5 Mg Tablet 5 MG ORAL DAILY for 30 Days, #30 TAB Hydrocodone/Acetaminophen 5-325* (Hydrocodone/Acetaminophen 5-325*) 1 Each Tablet 1 TAB ORAL Q6H PRN for 14 Days, #30 TAB Polyethylene Glycol 3350 (Miralax) 119 Gm Powder 17 GM ORAL DAILY for 30 Days, #30 GM Sennosides (Senna) 8.6 Mg Tablet 8.6 MG ORAL DAILY for 30 Days, #30 TAB Continued Medications: Gabapentin (Neurontin) 300 Mg Capsule 600 MG ORAL THREE TIMES A DAY for POLYNEUROPATHY, CAP 0 Refills Hydrochlorothiazide* (Hydrochlorothiazide*) 12.5 Mg Tablet 12.5 MG ORAL DAILY for Hypertension, TAB Insulin Lispro (Humalog) 100 Unit/1 Ml Cartridge 0 SUBQ TWICE A DAY for DIABETES, #1 UNITS 0 Refills SLIDING SCALE BEFORE MEALS Metformin Hcl* (Metformin Hcl*) 500 Mg Tablet 500 MG ORAL TWICE A DAY for Diabetes Mellitus, TAB Oxybutynin Chloride (Oxybutynin Chloride) 5 Mg Tablet 5 MG ORAL THREE TIMES A DAY for BPH/OUTFLOW OBSTRUCTION, #30 TAB 0 Refills Tamsulosin HCl (Flomax) 0.4 Mg Cap.er.24h 0.4 MG ORAL DAILY for BPH, CAP Discharge Condition Upon Discharge: improving Discharge Vital Signs Last Vital Signs Date Time Temp Pulse Resp B/P (MAP) Pulse Ox O2 Delivery O2 Flow Rate FiO2 01/15/20 09:00 Room Air 01/15/20 08:00 97.9 86 20 155/96 (115) 95 Discharge Disposition Patient was discharged to [facility] Mrieya Alfonso Discharge Diagnoses: (1) T2DM (type 2 diabetes mellitus) (2) UTI (urinary tract infection) (3) Cellulitis of scrotum (4) Hydrocele Rosas Rodriguez MD Jan 15, 2020 13:05
--- NOTE | 2020-01-15 13:31 | NUR ---
DISCHARGE PLANNING: NOTE DC ORDER NOTED. CLINICALS FAXED TO [facility] Addendum: 01/15/20 at 1525 by Ladi Sheffield CM [facility] PROVIDED ROOM [address]. SHE IS WAITING ON [employer] TO PROVIDE HER WITH SKILLED AUTH FOR SNF
--- NOTE | 2020-01-15 13:39 | NUR ---
NURSE NOTES: Spoke with Doctor Navarro and he stated that the patient was ok to discharge.
[2020-01-15 16:00] VITALS: BP 144/95
--- NOTE | 2020-01-15 16:06 | NUR ---
DISCHARGE DISPOSITION: PLEASE READ PATIENT TO BE DISCHARGED TO REHAB [facility] [address] [address] T: [phone]>> CALL FOR REPORT CALL THE CAR THROUGH [employer] ETA 1800 TRANSFER REPORT TO BE PROVIDED Addendum: 01/15/20 at 1611 by Ladi Sheffield CM [facility] IS AGREEABLE TO THE DC PLAN Addendum: 01/15/20 at 1637 by Ladi Sheffield CM CALL THE CAR FIRST AVAILABLE IS 1929 WITH [employer]
--- NOTE | 2020-01-15 16:52 | NUR ---
NURSE NOTES: Gave report to Cecilia at [facility], [facility]
--- NOTE | 2020-01-15 19:27 | NUR ---
NURSE HAND-OFF: Important Events on Shift:[discharge order] Patient Status: stable Diet: ccho medium Pending Orders: Pending Results/Labs: Pending MD notification: Latest Vital Signs: Temperature 97.9 , Pulse 74 , B/P 144 /95 , Respiratory Rate 18 , O2 SAT 97 , Room Air, O2 Flow Rate . Vital Sign Comment: stable Latest Romero Fall Score: 50 Fall Risk: High Risk Safety Measures: Call light Within Reach, Bed Alarm , Side Rails Side Rails x2, Bed position Low and Locked. Fall Precautions: Patient Fall Education Report given to Mitesh IVY.
--- NOTE | 2020-01-15 20:25 | NUR ---
NURSE NOTES: Patient is awake, alert and verbally responsive. All belongings at bedside. Vitals signs normal. No medications given. Ambulance picked up patient. Packet given.
== END 2020-01-15 20:20 | DRG 501 ==
LOC: EDBD 11:38 → EDBEDREQ 12:04 → EMR 13:13 → EDBEDREQ 14:30 → 3E 14:31 → EDBEDREQ 18:49 → 3E 23:03 → UNDODISIN 01-15 17:44
DX: N49.2 Inflammatory disorders of scrotum (principal); N43.3 Hydrocele, unspecified; N39.0 Urinary tract infection, site not specified; Z79.4 Long term (current) use of insulin; G62.9 Polyneuropathy, unspecified; Z86.19 Personal history of other infectious and parasitic diseases; B96.20 Unspecified Escherichia coli [E. coli] as the cause of diseases classified elsewhere; E87.6 Hypokalemia; K59.00 Constipation, unspecified; N40.1 Benign prostatic hyperplasia with lower urinary tract symptoms; R35.0 Frequency of micturition; R31.9 Hematuria, unspecified
CPT/HCPCS: 36415; 71045; 76870; 80048; 80053; 81003; 82248; 82962; 83605; 83735; 84100; 85007; 85025; 85610; 85730; 86850; 86900; 86901; 87040; 87081; 87086; 87181; 96361; 96365; 99285; J1815; J7030; J8499; U0002